=== PATIENT | female | born 1990 | race Caucasian/White ===

== ENCOUNTER → 2016-09-25 | Outpatient (CLI) | payer OTHER ==
[~2016-09-25] MED LIST: MTR600X PO; PRENTAB26 PO
[2016-09-25 19:24] LABS: URINE APPEARANCE CLEAR (CLEAR); URINE BILIRUBIN NEG (NEG); URINE COLOR YELLOW; URINE EPITHELIAL CELL AUTO >30 /lpf (0-5); URINE NITRITE NEG (NEG); URINE PH 6.5 (4.5-7.5); UROBILINOGEN NEG (NEG)
[2016-09-25 19:33] LABS: MANUAL MICROSCOPIC REQUIRED? NO; REVIEW REQ? NO
== END | disposition home or self-care (01) ==
LOC: C.LABSPEC 16:14
PROVIDERS: ATTEND Obstetrics & Gynecology
DX: O09.899 Supervision of other high risk pregnancies, unspecified trimester (principal); Z3A.00 Weeks of gestation of pregnancy not specified

== ENCOUNTER → 2016-09-29 | Outpatient (CLI) | payer OTHER ==
[2016-09-29 15:13] LABS: BASO % 0.2 %; BASO ABS # 0.02 K/uL (0-0.2); COMPLETE YES; EOS % 0.1 %; HEMATOCRIT 35.3 % (37-47); IG% 0.2 %; LYMPH % 25.1 %; LYMPH ABS # 2.19 K/uL (1.2-3.4); MEAN CELL VOLUME 90.1 fL (80-100); MEAN CORPUSCULAR HEMOGLOBIN 31.4 pg (25-34); MEAN CORPUSCULAR HGB CONC 34.8 g/dl (32-36); MEAN PLATELET VOLUME 9.6 fL (7.4-10.4); MONO % 5.4 %; PLATELET COUNT 271 K/uL (130-400); RED BLOOD COUNT 3.92 M/uL (4.2-5.4); WHITE BLOOD COUNT 8.73 K/uL (4.8-10.8)
[2016-10-03 03:07] LABS: CHLAMYDIA TRACH RNA*** NOT DETECTED (NOT DETECTED); GC (NEIS GONORRHOEAE)RNA** NOT DETECTED (NOT DETECTED)
== END | disposition home or self-care (01) ==
LOC: C.LAB1850 14:24
PROVIDERS: ATTEND Obstetrics & Gynecology
DX: O09.891 Supervision of other high risk pregnancies, first trimester (principal)

== ENCOUNTER → 2016-11-24 | Outpatient (CLI) | payer OTHER ==
[2016-11-24 17:25] LABS: GTGD 50 Grams
[2016-11-26 14:30] LABS: AFP MULTIPLE OF MEDIAN 1.03; AFPTS INSULIN DEP DIABETIC? NO; AFPTS MATERNAL WT 225 LBS; ALPHA-FETOPROTEIN RACE CAUCASIAN=W; EDD DETERMINED BY ULTRASOUND; ESTRIOL MULTIPLE OF MEDIAN 1.29; HISTORY OF NTD NO; INHIBIN A 161 PG/ML; INHIBIN A MOM 1.13; REPEAT SAMPLE? NO; hCG MULTIPLE OF MEDIAN 1.06
== END | disposition home or self-care (01) ==
LOC: C.LAB1850 12:43
PROVIDERS: ATTEND Obstetrics & Gynecology
DX: O09.892 Supervision of other high risk pregnancies, second trimester (principal); Z3A.00 Weeks of gestation of pregnancy not specified

== ENCOUNTER → 2017-02-16 | Outpatient (CLI) | payer OTHER ==
[2017-02-16 14:35] LABS: HEMATOCRIT 34.5 % (37-47)
[2017-02-16 15:18] LABS: GTGD 50 Grams
[2017-02-16 15:49] LABS: URINE APPEARANCE CLEAR (CLEAR); URINE BILIRUBIN NEG (NEG); URINE COLOR YELLOW; URINE EPITHELIAL CELL AUTO >30 /lpf (0-5); URINE NITRITE NEG (NEG); URINE PH 6.5 (4.5-7.5); URINE SPECIFIC GRAVITY 1.019 (1.000-1.030); UROBILINOGEN NEG (NEG)
[2017-02-16 15:54] LABS: MANUAL MICROSCOPIC REQUIRED? NO; REVIEW REQ? NO
== END ==
LOC: C.LAB1850 13:46
PROVIDERS: ATTEND Obstetrics & Gynecology
DX: O09.893 Supervision of other high risk pregnancies, third trimester (principal)

== ENCOUNTER → 2017-04-13 | Outpatient (CLI) | payer OTHER | END | disposition home or self-care (01) | LOC: C.LABSPEC 11:40 | PROVIDERS: ATTEND Obstetrics & Gynecology | DX: O09.893 Supervision of other high risk pregnancies, third trimester (principal) ==

== ENCOUNTER 2017-04-26 11:34 | Outpatient (CLI) | payer OTHER ==
[~2017-04-26] VITALS: Ht 162.6 cm; Wt 113.6 kg
[2017-04-26] MEDS ORDERED: PRENTAB26 PO (12:17)
[2017-04-26 12:20] VITALS: Ht 162.6 cm; Wt 113.6 kg
== END 2017-04-26 14:45 | disposition home or self-care (01) ==
LOC: C.LD 11:34 → C.OPB 11:34
PROVIDERS: ATTEND Obstetrics & Gynecology
DX: O62.9 Abnormality of forces of labor, unspecified (principal); Z3A.37 37 weeks gestation of pregnancy

== ENCOUNTER 2017-05-11 17:02 | Inpatient (IN) | payer OTHER ==
[~2017-05-11] VITALS: Ht 162.6 cm; Wt 114.0 kg
[~2017-05-11 17:02] MED LIST changes: -MTR600X PO
[2017-05-11] MEDS ORDERED: LACTATED RINGER'S 1000ML 1,000 ML IV SCH (17:51)
[2017-05-11] MEDS ORDERED: LACTATED RINGER'S 1000ML 1,000 ML IV PRN (17:51)
[2017-05-11 17:57] VITALS: Ht 162.6 cm; Wt 114.0 kg
[2017-05-11 18:26] LABS: HEMATOCRIT 36.1 % (37-47); MEAN CELL VOLUME 94.5 fL (80-100); MEAN CORPUSCULAR HEMOGLOBIN 32.2 pg (25-34); MEAN CORPUSCULAR HGB CONC 34.1 g/dl (32-36); MEAN PLATELET VOLUME 9.4 fL (7.4-10.4); PLATELET COUNT 238 K/uL (130-400); RED BLOOD COUNT 3.82 M/uL (4.2-5.4)
[2017-05-11] MEDS ORDERED: FENTANYL 2MCG/ML ROPIV 1.25MG/ML 100ML BAG EPI ONE (18:32)
[2017-05-11] MEDS ORDERED: EpHEDrine SULFATE INJ 50 MG/ML AMP ONE (18:32)
[2017-05-11] MEDS ORDERED: BUPIVACAINE 0.25% 30 ML VIAL ONE (18:32)
[2017-05-11] MEDS ORDERED: FENTANYL CITRATE INJ 50 MCG/1 ML 2 ML VIAL ONE (18:32)
[2017-05-11] MEDS ORDERED: OXYTOCIN 30 UNITS/500ML NSS IV ONE (19:44)
[2017-05-11] MEDS ORDERED: SUPERCREAM 0.870 % 15GM JAR EXT PRN (20:00)
[2017-05-11] MEDS ORDERED: ACETAMINOPHEN 325 MG TAB PO PRN (20:00)
[2017-05-11] MEDS ORDERED: BENZOCAINE 20% AER SPR 82.5 GM CAN EXT PRN (20:00)
[2017-05-11] MEDS ORDERED: LANOLIN OINT EXT PRN ×2 (20:00)
[2017-05-11] MEDS: DOCUSATE SODIUM 100 MG CAP PO SCH (20:00)
[2017-05-11] MEDS ORDERED: OXYTOCIN 30 UNITS/500ML NSS IV PRN (20:00)
[2017-05-11] MEDS: IBUPROFEN 600 MG TAB PO PRN (20:13)
[2017-05-11] MEDS: ACETAMINOPHEN/CODEINE 300/30MG TAB PO PRN (20:13)
[2017-05-11 22:30] VITALS: BP 124/83; PULSE 74; TEMP 36.7
[2017-05-12] MEDS: IBUPROFEN 600 MG TAB PO PRN ×3 (00:34→15:10)
--- NOTE | 2017-05-12 00:41 | Progress Note ---
Progress Note Date of Service May 11, 2017. Progress Note Received request for epidural placement around 1815 on May 11, 2017. Interviewed and consented the patient. Patient was noted to have significant scoliosis upon positioning for epidural placement. Attempted placement 3 times without CHAZ. Patient requesting that we stop attempts. Drape removed and back cleaned. Site clean, dry and intact and patient moving all extremities appropriately. Apologized for the patient being unable to receive epidural as requested. Spoke with Dr. Gu and offered to return with ultrasound and reattempt placement using ultrasound guidance if the patient so desired. OB team plans to reassess patient and possibly proceed without epidural.
[2017-05-12] MEDS: ACETAMINOPHEN/CODEINE 300/30MG TAB PO PRN ×4 (02:06→18:02)
--- NOTE | 2017-05-12 02:21 | DELIVERY SUMMARY ---
DATE OF OPERATION: 05/11/2017 The patient is a 27-year-old 3, para 2-0-0-2 white female, EDC of 05/11/2017, who presented in the active labor. She progressed to full dilation after rupture of membranes for minimal clear fluid. She pushed effectively over intact perineum for delivery of a viable female . Mouth and nasopharynx were suctioned on the perineum. The rest of the delivered easily and was placed on the mother's abdomen for further attention and stimulation. There was vigorous crying and the was moving all four limbs. Placenta was expressed intact with a 3-vessel cord. There were no perineal lacerations or abrasions. Estimated blood loss was 250 mL. Mother and infant are doing well after delivery. I attest to the content of the Intraoperative Record and any orders documented therein. Any exception s are noted below.
[2017-05-12 03:43] VITALS: BP 101/66; PULSE 58; TEMP 36.5
--- NOTE | 2017-05-12 06:23 | OB/GYN Progress Note ---
PROFESSOR OF PRACTICE Progress Note Date of Service May 12, 2017. Subjective conversation w/ patient, physical exam, chart review, lab review Ambulation: ambulating normally Voiding: no voiding problems Diet Tolerance: Regular Diet Lochia: Small Feeding Type: Bottle Feeding Pain: 8-9/10 pain with cramping tylenol helps more than motrin Review of Systems Constitutional: No fever Respiratory: No shortness of breath Cardiac: No chest pain Abdomen: No nausea, No vomiting Female : No dysuria Objective Vital Signs Date Time Temp Pulse Resp B/P (MAP) Pulse Ox O2 Delivery O2 Flow Rate FiO2 05/12/17 03:43 36.5 58 16 101/66 (78) 05/11/17 22:30 36.7 74 18 124/83 (97) 05/11/17 22:30 Room Air Physical Exam General Appearance: WELL-APPEARING Respiratory/Chest: lungs clear, normal breath sounds, no respiratory distress Cardiovascular: regular rate, rhythm Abdomen: normal bowel sounds, non tender, soft Fundus: Firm, Relation to Umbilicus (3 below U) Extremities: non-tender, no pedal edema Laboratory Results Last 24 Hours Test 05/11/17 18:17 05/12/17 06:08 White Blood Count 12.50 K/uL Red Blood Count 3.82 M/uL Hemoglobin 12.3 g/dL Hematocrit 36.1 % Mean Corpuscular Volume 94.5 fL Mean Corpuscular Hemoglobin 32.2 pg Mean Corpuscular Hemoglobin Concent 34.1 g/dl RDW Standard Deviation 43.6 fL RDW Coefficient of Variation 12.6 % Platelet Count 238 K/uL Mean Platelet Volume 9.4 fL Assessment and Plan Post- Day Number: 1 Continue Routine Care: Resident Physician Supervision Note: I was present with Dr. Alex during the history and exam. I discussed the case with the resident and agree with the findings and plan as documented in the note. Any exceptions or clarifications are listed here: [None] Documented By: Luiza Luciano A/P: This is a 27 y/o female, , PPD#1 s/p normal vaginal delivery. She is ambulating and clinically stable. Plan: - Vitals signs are reviewed and WNL (Tmax 36.7 ) - Last Hgb is 12.3 (05/11). This Am pending - Blood type A+, GBS neg, Rubella Immune - Routine care - Encourage ambulation, monitor and control pain with medication as needed, continue with regular diet as tolerated and monitor lochia - Stool softeners and sitz bath recommended - Encourage breast feeding and educate about breast feeding Resident Involvement: Resident Care Provided Care Provided: OB Delivery
[2017-05-12] MEDS: DOCUSATE SODIUM 100 MG CAP PO SCH ×2 (07:30→19:58)
[2017-05-12] MEDS: PRENATAL VITAMIN TAB PO SCH (07:30)
--- NOTE | 2017-05-12 07:54 | Discharge Instructions ---
Discharge Instructions Date of Service May 12, 2017. Admission Reason for Admission: Check Labor Discharge Discharge Diagnosis / Problem: after delivery Discharge Goals Goal(s): Routine recovery after delivery Medications Continue Dispensed Medications: supercream, dermaplast, tucks, lansinoh Activity Recommendations Activity Limitations: per Instructions/Follow-up section . Instructions / Follow-Up Instructions / Follow-Up ACTIVITY RECOMMENDATIONS: * Gradual return to full activity over the next 2-3 weeks. * No lifting - nothing heavier than baby over the next 2-3 weeks. * Do not engage in vigorous exercise, sexual activity or sports until cleared by your physician. * Do not drive or operate any motorized equipment until cleared by your physician. * You may shower/bathe daily. MEDICATIONS: For discomfort or pain, you may use Acetaminophen (Tylenol), Ibuprofen (Advil), or Naproxen (Aleve) following the package directions. For constipation you may use Colace following the package directions. BREAST CARE: If you are not breast feeding: * Wear a supportive bra 24 hours a day for one to two weeks. * Avoid stimulating your breasts and nipples as much as possible during the first few weeks after delivery. * When taking a shower, have the warm water hit your back, not breasts. * When your breasts feel full, apply ice packs. Usually three to four times a day helps ease the discomfort. * Take a mild pain medication (Tylenol / Motrin) when you are uncomfortable. If breast feeding: * Use breast milk to lubricate nipples. Lansinoh cream may be used for sore nipples. You do not need to remove cream prior to breast feeding. If using a different brand of cream, check the label for directions regarding removal of cream prior to nursing. * Wear a supportive bra. * If having problems with breasts or breast feeding, call a construction safety consultant or your health care provider. EPISIOTOMY CARE: After delivery, if you have an episiotomy (stitches), the following steps will ease discomfort and aid healing. * For the first 24 hours after delivery, place ice packs next to your episiotomy to help reduce swelling. * After the first 24 hour-period, sitz baths, either portable or in the tub, are suggested. A shower with a shower arm sprayed over the episiotomy may be comforting. * Ning care should be done after each voiding and bowel movement. Squirt warm water from a plastic bottle over the perineum (region of the body between the anus and urinary opening) and pat dry. * Use Dermoplast to ease discomfort. Shake container. Morris directly over the episiotomy. Place a Tucks on a clean sanitary pad next to your episiotomy. SPECIAL CARE INSTRUCTIONS: When you are discharged from the hospital, it is important for you to follow the instructions listed below: * During the first week at home, you should be able to care for yourself and your baby. In addition, the usual light household activities are encouraged. * Limit your activities to the way you feel. Do not try to clean the house or move furniture. Be sensible. * If you actively engage in sports and have done so up until the time of your delivery, you may resume these activities as soon as you feel able. This may take up to one month or even longer. Use good judgment. * Continue to take your vitamins for at least six weeks after the of your baby. * Your diet need not be limited unless you were on a special diet before your delivery. Breast-feeding mothers need around 2500 calories per day and at least 64-80 ounces of fluid per day (8 to 10 glasses). * You should eat foods from the four major food groups. Crash diets or fad diets are to be avoided. Eating lean meats, fresh fruits and vegetables, low-fat dairy products, high fiber foods and a regular exercise program, will help you get back to your pre- weight without putting your health at risk. * Constipation is sometimes a problem after delivery. Take a mild laxative as needed. If breast feeding, Milk of Magnesia is acceptable to use. You may use a suppository or Fleets enema if no episiotomy. * A daily shower or tub bath is suggested. Be sure to thoroughly and gently dry the perineum. * A bloody vaginal discharge will usually continue until around four weeks post . A small amount of bleeding may continue for as long as six weeks. Vaginal discharge changes from the bright red bleeding after delivery to pink then brownish and finally yellowish-pink before becoming white and disappearing. * Bleeding may increase with activity. Your first period may come in 4-8 weeks. If you are breast feeding, your period may be delayed even longer. * [place] (sex) can begin whenever both you and your partner feel comfortable and do not have any form of genital infection. It is recommended that you wait at least six weeks for internal and external healing to occur. If you have questions, please talk to your health care practitioner. A condom should be used to prevent infection and . * Foreplay, gentle intercourse and lubrication is very important the first several times to prevent pain. A water-based lubricant such as K-Y jelly or Astroglide may be used. * If you have RH negative blood and your baby is RH positive, you will receive RHOGAM by injection prior to discharge. The nurse will give you a card to keep with you that has the date and place that you received RHOGAM after delivery. * During your care, you had a Rubella screen done to check for the presence of rubella antibodies in your blood. If your test was negative, you will receive a Rubella vaccine prior to discharge. This vaccine may cause a fever, soreness at the injection site and flu-like symptoms. If these symptoms persist, notify your health care practitioner. is not advised for one month after a Rubella vaccine. * Verbalizes understanding of car seat law as reviewed with patient nursing. * Car Seat hand-out given and reviewed with patient by nursing. * Shaken baby information reviewed with patient by nursing. Call you doctor if: * Heavy bleeding (saturating several pads an hour) or passing clots the size of your fist. * A fever >101 degrees F (38.3 degrees C) on two occasions four hours apart and /or chills. * Unusual pain in the pelvic or vaginal areas. * "Baby Blues" lasting longer than two weeks. If you have any questions or concerns, call your health care practitioner at . FOLLOW UP VISIT: * Please call the office at to schedule a 6 week examination. It is important you keep this appointment. It is important for you to make arrangements for either yearly or twice yearly check-ups thereafter. Current Hospital Diet Patient's current hospital diet: Regular OB Diet Discharge Diet Recommended Diet: Regular Diet Pending Studies Studies pending at discharge: no Medical Emergencies . Who to Call and When: Medical Emergencies: If at any time you feel your situation is an emergency, please call 911 immediately. . Non-Emergent Contact Non-Emergency issues call your: [employer] Football [employer] . . "Provider Documentation" section prepared by Sherry Alex. . VTE Core Measure Inpt VTE Proph given/why not?: Treatment not indicated
[2017-05-12 08:50] VITALS: BP 108/70; PULSE 62; TEMP 36.8; O2SAT 97
[2017-05-12 12:35] VITALS: BP 111/72; PULSE 61; TEMP 37; O2SAT 97
[2017-05-12 15:20] VITALS: BP 108/79; PULSE 72; TEMP 36.8; O2SAT 97
[2017-05-12 19:50] VITALS: BP 128/83; PULSE 60; TEMP 36.6; O2SAT 96
[2017-05-12] MEDS ORDERED: BISACODYL 5 MG TABEC PO SCH (20:00)
[2017-05-12 23:50] VITALS: BP 109/72; PULSE 60; TEMP 36.8; O2SAT 98
[2017-05-13] MEDS: ACETAMINOPHEN/CODEINE 300/30MG TAB PO PRN ×2 (03:22→08:08)
--- NOTE | 2017-05-13 06:09 | OB/GYN Progress Note ---
TRADE MANAGER Progress Note Date of Service May 13, 2017. Subjective conversation w/ patient, physical exam, chart review, lab review Ambulation: ambulating normally Voiding: no voiding problems Diet Tolerance: Regular Diet Lochia: Small Feeding Type: Bottle Feeding Pain: 8/10 pain at peak of cramps which are constant but tylenol helps with pain Review of Systems Constitutional: No fever Respiratory: No shortness of breath Cardiac: No chest pain Abdomen: No nausea, No vomiting Female : No dysuria Objective Vital Signs Date Time Temp Pulse Resp B/P (MAP) Pulse Ox O2 Delivery O2 Flow Rate FiO2 05/12/17 23:50 98 Room Air 05/12/17 23:50 36.8 60 16 109/72 (84) 98 Room Air 05/12/17 19:50 36.6 60 18 128/83 (98) 96 Room Air 05/12/17 15:20 36.8 72 18 108/79 (89) 97 Room Air 05/12/17 15:20 97 Room Air 05/12/17 12:35 37.0 61 18 111/72 (85) 97 Room Air 05/12/17 08:50 36.8 62 18 108/70 (83) 97 Room Air 05/12/17 08:50 97 Room Air Physical Exam General Appearance: WELL-APPEARING Respiratory/Chest: lungs clear, normal breath sounds, no respiratory distress Cardiovascular: regular rate, rhythm Abdomen: normal bowel sounds, non tender, soft Fundus: Firm, Relation to Umbilicus (3 below U) Extremities: non-tender, no pedal edema Laboratory Results Last 24 Hours Test 05/12/17 06:08 Hemoglobin 11.2 g/dL Hematocrit 33.0 % Assessment and Plan Post- Day Number: 2 Continue Routine Care: A/P: This is a 27 y/o female, , PPD#1 s/p normal vaginal delivery. She is ambulating and clinically stable. Plan: - Vitals signs are reviewed and WNL (Tmax 37) - Last Hgb is 11.2 (05/12). - Blood type A+, GBS neg, Rubella Immune - No signs of depression. - Routine care - Discussed resting, feeding, pain control, mastitis, control, follow up in 6 weeks and reasons to call sooner, if necessary. - Continue with pain medication as needed, and continue vitamins. - Encourage breast feeding and educate about breast feeding - Patient understands and keen for home. - Plan to discharge home Resident Physician Supervision Note: I was present with Dr. Alex during the history and exam. I discussed the case with the resident and agree with the findings and plan as documented in the note. Any exceptions or clarifications are listed here: pt having cramps, using tylenol #3 and still complaining, rec motrin. would not offer narcotics for uterine cramps as outpt. will discuss with delivering md. otherwise doing well. ready for d/c home. instructions reviewed. f/u 6wk pp check. Documented By: Valeria Orta Resident Involvement: Resident Care Provided Care Provided: OB Delivery
[2017-05-13 07:30] VITALS: BP 120/81; PULSE 58; TEMP 36.5
[2017-05-13] MEDS: DOCUSATE SODIUM 100 MG CAP PO SCH (08:08)
[2017-05-13] MEDS: IBUPROFEN 600 MG TAB PO PRN ×2 (08:08→12:22)
[2017-05-13] MEDS: PRENATAL VITAMIN TAB PO SCH (08:09)
[2017-05-13] MEDS ORDERED: MTR600X PO (11:07)
[2017-05-13 12:05] VITALS: BP_DIAS 81; PULSE 58; TEMP 36.5
== END 2017-05-13 12:35 | disposition home or self-care (01) | DRG 774 ==
LOC: C.LD 17:02 → C.OPB 17:02 → C.LD 17:56 → C.OBG 22:34
PROVIDERS: ADMIT Obstetrics & Gynecology; ATTEND Obstetrics & Gynecology
PROC: 10E0XZZ Delivery of Products of Conception, External Approach (ICD-10-PCS; principal; 2017-05-11)
DX: O42.92 Full-term premature rupture of membranes, unspecified as to length of time between rupture and onset of labor (principal); O99.42 Diseases of the circulatory system complicating childbirth; O99.354 Diseases of the nervous system complicating childbirth; Z68.41 Body mass index [BMI] 40.0-44.9, adult; Z37.0 Single live birth; Z3A.40 40 weeks gestation of pregnancy; O99.02 Anemia complicating childbirth; D64.9 Anemia, unspecified; O99.52 Diseases of the respiratory system complicating childbirth; J45.909 Unspecified asthma, uncomplicated; G43.909 Migraine, unspecified, not intractable, without status migrainosus; O99.214 Obesity complicating childbirth; O99.89 Other specified diseases and conditions complicating pregnancy, childbirth and the puerperium; M54.2 Cervicalgia; M54.5 Low back pain; M41.9 Scoliosis, unspecified; R00.2 Palpitations; R07.9 Chest pain, unspecified; Z79.899 Other long term (current) drug therapy

== ENCOUNTER → 2017-06-24 | Outpatient (CLI) | payer OTHER ==
[~2017-06-24] MED LIST changes: +MTR600X PO
== END | disposition home or self-care (01) ==
LOC: C.PAPS 09:21
PROVIDERS: ATTEND Obstetrics & Gynecology
DX: Z12.4 Encounter for screening for malignant neoplasm of cervix (principal); O09.893 Supervision of other high risk pregnancies, third trimester; Z3A.00 Weeks of gestation of pregnancy not specified

== ENCOUNTER → 2017-07-12 | Outpatient (CLI) | payer OTHER ==
[2017-07-12 18:59] LABS: THYROID STIMULATING HORMONE 1.59 uIu/ml (0.300-4.500)
== END | disposition home or self-care (01) ==
LOC: C.LABMFLN 11:59
PROVIDERS: ATTEND Obstetrics & Gynecology
DX: N92.6 Irregular menstruation, unspecified (principal)

== ENCOUNTER → 2017-11-05 | Outpatient (CLI) | payer OTHER ==
[~2017-11-05] MED LIST changes: +ACET-1256 PO; +MULT-506 PO; -PRENTAB26 PO
== END | disposition home or self-care (01) ==
LOC: C.LABMFLN 13:13
PROVIDERS: ATTEND Family Medicine Adult Medicine
DX: R03.0 Elevated blood-pressure reading, without diagnosis of hypertension (principal)

== ENCOUNTER → 2017-11-08 | Outpatient (CLI) | payer OTHER | END | disposition home health service (06) | LOC: C.LABMFLN 10:01 | PROVIDERS: ATTEND Family Medicine Adult Medicine | DX: R03.0 Elevated blood-pressure reading, without diagnosis of hypertension (principal) ==

== ENCOUNTER → 2017-12-15 | Outpatient (CLI) | payer OTHER | END | disposition home or self-care (01) | LOC: C.LABMFLN 10:06 | PROVIDERS: ATTEND Family Medicine Adult Medicine | DX: L65.9 Nonscarring hair loss, unspecified (principal); N92.6 Irregular menstruation, unspecified; G43.909 Migraine, unspecified, not intractable, without status migrainosus ==

== ENCOUNTER → 2018-01-13 | Outpatient (CLI) | payer OTHER | END | disposition home or self-care (01) | LOC: C.LAB1850 12:28 | PROVIDERS: ATTEND Obstetrics & Gynecology | DX: N91.1 Secondary amenorrhea (principal) ==

== ENCOUNTER → 2018-04-15 | Outpatient (CLI) | payer OTHER ==
[~2018-04-15] MED LIST changes: +HYDR-5688 PO
== END | disposition home or self-care (01) ==
LOC: C.LABMFLN 15:44
PROVIDERS: ATTEND Family Medicine
DX: J02.9 Acute pharyngitis, unspecified (principal)